=== PATIENT | male | born 1955 | race Caucasian/White ===

== ENCOUNTER 2016-06-08 20:16 | Emergency (ER) | payer OTHER, MEDICARE ==
[2016-06-08] MEDS ORDERED: PREDNISONE 20 MG TABLET ONE (20:52)
[2016-06-08] MEDS ORDERED: AZITHROMYCIN 250 MG TABLET ONE (20:52)
[2016-06-08] MEDS ORDERED: IPRATROPIUM BROMIDE 0.5 MG/2.5 ML DOSE ONE (20:53)
[2016-06-08] MEDS ORDERED: ALBUTEROL SULFATE 5MG/ML INHALANT 20 ML BOT ONE (20:53)
== END 2016-06-08 21:54 | disposition home or self-care (01) ==
LOC: ED 20:16
DX: J44.1 Chronic obstructive pulmonary disease with (acute) exacerbation (principal); J32.1 Chronic frontal sinusitis; Z87.891 Personal history of nicotine dependence
CPT/HCPCS: 94644; 99283 ×2; J7645; J7512; A9270

== ENCOUNTER 2016-07-23 10:02 | Emergency (ER) | payer OTHER, MEDICARE ==
[2016-07-23] MEDS ORDERED: ASPIRIN CHEWTAB 81 MG TABLET ONE (10:30)
[2016-07-23 10:52] LABS: ALB/GLOB RATIO 1.4 (>1.0); ALBUMIN 4.3 gm/dL (3.5-5.7); CALCIUM 9.4 mg/dL (8.6-10.3)
--- NOTE | 2016-07-23 10:54 | RAD ---
Exam: Two-view chest COMPARISON: 06/03/2014 and 02/05/2010 INDICATION: Chest pain, intermittently this morning, which goes into the back. Findings: PA and lateral views of the chest were obtained. Cardiomediastinal silhouette is within normal limits and stable. Lungs are well-inflated. There is no focal airspace disease or pleural effusion. A few bridging osteophytes are noted within the thoracic spine. IMPRESSION: No acute pulmonary process.
[2016-07-23 10:59] LABS: TROPONIN I < 0.01 ng/ml (0.0-0.06)
[2016-07-23 11:02] LABS: CKMB ISOENZYME 5.4 ng/ml (0.6-6.3)
== END 2016-07-23 12:04 | disposition home or self-care (01) ==
LOC: ED 10:02
DX: R07.9 Chest pain, unspecified (principal); J44.9 Chronic obstructive pulmonary disease, unspecified; J45.909 Unspecified asthma, uncomplicated; E66.9 Obesity, unspecified; Z87.891 Personal history of nicotine dependence
CPT/HCPCS: 83880; 85379; 82550; 82553; 80053; 84484; 71020; 99284 ×2; A9270